=== PATIENT | female | born 1945 | race Caucasian/White ===

== ENCOUNTER 2017-12-20 12:40 | Outpatient (CLI) | payer MEDICARE ==
--- NOTE | 2017-12-20 13:22 | MMO ---
BILATERAL SCREENING MAMMOGRAM: COMPARISON: 10/10/16, 10/05/15, 09/13/14. HISTORY: A 72-year-old female. Routine screening mammography. FINDINGS: CC and MLO views of both breasts are submitted for interpretation. This patient's mammogram is revie wed with the assistance of computer-aided detection. Breasts are predominantly fatty replaced. Bilaterally, no suspicious dominant mass, architectural di stortion, or suspicious calcification. Benign-appearing calcifications in the left breast. IMPRESSION: BI-RADS category 2, benign findings. RECOMMENDATION: Annual mammogram. BIRADS 2: Benign Finding(s) Routine annual screening mammography (for women over age 40) POS: [facility]
== END 2017-12-20 12:41 | disposition home or self-care (01) ==
LOC: SCSMAMMO 12:40
PROVIDERS: ATTEND Obstetrics & Gynecology
DX: Z12.31 Encounter for screening mammogram for malignant neoplasm of breast (principal)
CPT/HCPCS: 77067

== ENCOUNTER 2019-03-17 15:09 | Outpatient (CLI) | payer MEDICARE ==
--- NOTE | 2019-03-17 16:02 | MMO ---
Bilateral MAMMO Bilat Screen [facility]. CLINICAL HISTORY: Patient is 73 years old and is seen for screening. The patient has no family history of breast cancer. The patient has no personal history of cancer. VIEWS: The views performed were: bilateral craniocaudal with tomosynthesis and bilateral mediolateral oblique with tomosynthesis. FILMS COMPARED: The present examination has been compared to prior imaging studies performed at [facility] on 09/13/2014, 10/05/2015 and 12/20/2017, and at [facility] on 10/10/2016. This study has been interpreted with the assistance of computer-aided detection. MAMMOGRAM FINDINGS: The breasts are almost entirely fat. Benign calcifications are noted bilaterally. There are no suspicious masses, suspicious calcifications, or new areas of architectural distortion. IMPRESSION: THERE IS NO MAMMOGRAPHIC EVIDENCE OF MALIGNANCY. A ROUTINE FOLLOW-UP MAMMOGRAM IN 1 YEAR IS RECOMMENDED. THE RESULTS OF THIS EXAM WERE SENT TO THE PATIENT. ACR BI-RADS Category 2 - Benign finding MAMMOGRAPHY NOTE: 1. A negative mammogram report should not delay a biopsy if a dominant of clinically suspicious mass is present. 2. Approximately 10% to 15% of breast cancers are not detected by mammography. 3. Adenosis and dense breasts may obscure an underlying neoplasm. Reported by: ALEX BLACKWELL MD Electonically Signed: [id number]
== END 2019-03-17 15:10 | disposition home or self-care (01) ==
LOC: BICMAMMO 15:09
PROVIDERS: ATTEND Internal Medicine
DX: Z12.31 Encounter for screening mammogram for malignant neoplasm of breast (principal)
CPT/HCPCS: 77063; 77067

== ENCOUNTER 2020-09-14 09:48 | Outpatient (CLI) | payer MEDICARE | END 2020-09-14 09:49 | disposition home or self-care (01) | LOC: BICMAMMO 09:48 | PROVIDERS: ATTEND Internal Medicine | DX: Z12.31 Encounter for screening mammogram for malignant neoplasm of breast (principal) | CPT/HCPCS: 77063; 77067 ==

== ENCOUNTER 2025-02-17 14:04 | Outpatient (CLI) | payer MEDICARE | END 2025-02-17 14:05 | disposition home or self-care (01) | LOC: SCSBT 14:04 | PROVIDERS: ATTEND Internal Medicine | DX: M81.0 Age-related osteoporosis without current pathological fracture (principal); Z78.0 Asymptomatic menopausal state; M85.89 Other specified disorders of bone density and structure, multiple sites | CPT/HCPCS: 77080 ==